=== PATIENT | male | born 1965 | race Caucasian/White ===

== ENCOUNTER 2019-11-07 19:45 | Inpatient (IN) | payer MEDICAID ==
[~2019-11-07] VITALS: Ht 180.3 cm; Wt 113.9 kg
--- NOTE | 2019-11-07 20:27 | NUR ---
Dr. Mendoza at bedside for MSE
[2019-11-07] MEDS ORDERED: IV NORMAL SALINE 1000 ML BAG IV ONE (20:30)
[2019-11-07] MEDS ORDERED: VANCOMYCIN IV 1,000 MG in IV DEXTROSE 5% 250 ML IV ONE (20:30)
[2019-11-07] MEDS ORDERED: VANCOMYCIN IV 200 ML ONE (20:46)
[2019-11-07 21:06] LABS: BASOPHILS # (AUTO) 0.1 K/uL (0.0-8.0); BASOPHILS % (AUTO) 0.4 % (0.0-2.0); EOSINOPHILS # (AUTO) 0.1 K/uL (0.0-0.7); EOSINOPHILS % (AUTO) 0.3 % (0.0-7.0); HEMATOCRIT 50.3 % (36.7-47.1); HEMOGLOBIN 17.1 g/dL (12.5-16.3); LYMPHOCYTES % (AUTO) 9.3 % (20.5-51.5); MEAN CORPUSCULAR HEMOGLOBIN 28.3 uug (23.8-33.4); MEAN CORPUSCULAR HGB CONC 34 g/dL (32.5-36.3); MEAN CORPUSCULAR VOLUME 83.1 fL (73.0-96.2); MONOCYTES # (AUTO) 2.7 K/uL (2.0-10.0); MONOCYTES % (AUTO) 12.6 % (0.0-11.0); NEUTROPHILS # (AUTO) 16.6 K/uL (1.8-8.9); NEUTROPHILS % (AUTO) 77.4 % (38.5-71.5); PLATELET COUNT (AUTO) 208 K/uL (152-348); RED BLOOD CELL COUNT(AUTO) 6.05 MIL/uL (4.06-5.63); WHITE BLOOD COUNT (AUTO) 21.5 K/uL (3.6-10.2)
[2019-11-07 21:14] LABS: POTASSIUM 3.5 mmol/L (3.5-5.1)
[2019-11-07 21:20] LABS: BILIRUBIN,DIRECT 0.1 mg/dL (0.0-0.2); BILIRUBIN,TOTAL 0.5 mg/dL (0.2-1.0); TOTAL PROTEIN, SERUM 6.8 g/dL (6.4-8.2)
--- NOTE | 2019-11-07 21:25 | NUR ---
Ultrasound at bedside.
--- NOTE | 2019-11-07 21:48 | NUR ---
unable to start IV after multiple attempts MD notified with order PICC insertion
--- NOTE | 2019-11-07 21:56 | NUR ---
NADIA REED, DIRECTOR NURSING SERVICE AT BEDSIDE TO EVALUATE PT
--- NOTE | 2019-11-07 22:07 | NUR ---
REPORT GIVEN TO MAGDALENA JEWELL
[2019-11-07] MEDS ORDERED: MORPHINE SULFATE 2 MG/1 ML DISP.SYRIN IV PRN (22:15)
[2019-11-07] MEDS ORDERED: Z GUARD REMEDY PASTE 57 GM TUBE TOP PRN (22:15)
[2019-11-07] MEDS ORDERED: HYDROCODONE/APAP 5-325MG TABLET PO PRN (22:15)
[2019-11-07] MEDS ORDERED: MAGNESIUM HYDROXIDE 30 ML LIQUID UDC PO PRN (22:15)
[2019-11-07] MEDS ORDERED: ONDANSETRON 4 MG/2 ML VIAL IV PRN (22:15)
[2019-11-07] MEDS: NEOMY/BACITRAC/POLYMI OINT 28.35 GM TUBE TOP SCH (22:40)
[2019-11-07] MEDS ORDERED: ONDANSETRON ODT 4 MG TAB.RAPDIS SL PRN (22:45)
[2019-11-07] MEDS ORDERED: PIPERACILLIN SODIUM/TAZOBACTAM 3.375 G in IV DEXTROSE 5% 50 ML IV SCH (22:48)
[2019-11-07] MEDS: HYDROCODONE/APAP 10-325 MG TABLET PO PRN (22:55)
--- NOTE | 2019-11-08 01:00 | NUR ---
PICC line nurse Arnie at bedside for Midline insertion.
--- NOTE | 2019-11-08 01:35 | NUR ---
Pt. admitted to [facility] Room 302 , under care of Darrell Mensah, RESPIRATORY MEDICINE PHYSICIAN Belongs List completed. All belongings with pt aa/ox4. able to speak in complete sentences no s/s of distress respirations even and unlabored transported via gurney
[2019-11-08 01:48] VITALS: BP 120/65
[2019-11-08] MEDS ORDERED: PIPERACILLIN/TAZOBACTAM/D5W 50 ML IV ONE (01:51)
--- NOTE | 2019-11-08 02:00 | NUR ---
Received patient from ER. Dx: Cellulitis. Patient is A/Ox4, no signs of acute distress noted. Complains of pain to the left lower extremity, noted to be red and swollen, wound on calf noted, sent culture to lab. No SOB, vitals WNL. Patient is negative for COVID. Midline on the right upper arm is intact and patent. Patient started on Vanco. Patient oriented to unit and room. Safety measures initiated. Bed is low and locked, call light within reach. Will continue to monitor.
[2019-11-08] MEDS: HYDROCODONE/APAP 10-325 MG TABLET PO PRN (02:03)
--- NOTE | 2019-11-08 02:30 | NUR ---
Spoke to Dariana from [facility], explained that patient was receiving Vanco that was started in ER, patient only has one line as patient is a hard stick, patient was scheduled to received Zosyn around 2230, asked pharmacist if able to change start date of Zosyn because medications are not compatible. Stated she can change start time at 0400. Vancomycin still running at this time, no s/s of infection or infiltration noted.
[2019-11-08 02:52] LABS: *BILIRUBIN,URIN NEGATIVE (NEGATIVE); *BLOOD, URINE 2+ (NEGATIVE); *CLARITY,URINE CLEAR (CLEAR); *COLOR,URINE AMBER (YELLOW); *KETONES,URINE NEGATIVE (NEGATIVE); *UROBILINOGEN,URINE 0.2 E.U./dl (NORMAL); LEUKOCYTE ESTERASE ,URINE NEGATIVE (NEGATIVE); NITRITE, URINE NEGATIVE (NEGATIVE); PH,URINE 5.5 (5.0-8.0); UGLUCOSE NEGATIVE (NEGATIVE)
[2019-11-08 03:02] LABS: BACTERIA,URINE NONE SEEN /HPF (NONE SEEN); WBC,URINE 0-3 /HPF (0-3)
[2019-11-08 03:03] LABS: SQUAMOUS EPITHELIAL CELL,UR FEW /HPF (NONE SEEN)
[2019-11-08] MEDS ORDERED: PIPERACILLIN SODIUM/TAZOBACTAM 3.375 G in IV DEXTROSE 5% 50 ML IV ONE (04:00)
[2019-11-08 05:50] VITALS: BP 127/77
[2019-11-08 06:33] LABS: BASOPHILS % (AUTO) 0.3 % (0.0-2.0); EOSINOPHILS % (AUTO) 0.1 % (0.0-7.0); HEMATOCRIT 45.4 % (36.7-47.1); HEMOGLOBIN 15.2 g/dL (12.5-16.3); LYMPHOCYTES # (AUTO) 1.6 K/uL (20.0-40.0); MEAN CORPUSCULAR HEMOGLOBIN 27.9 uug (23.8-33.4); MEAN CORPUSCULAR HGB CONC 34 g/dL (32.5-36.3); MEAN CORPUSCULAR VOLUME 83.1 fL (73.0-96.2); MONOCYTES # (AUTO) 1.9 K/uL (2.0-10.0); MONOCYTES % (AUTO) 11.9 % (0.0-11.0); NEUTROPHILS # (AUTO) 12.4 K/uL (1.8-8.9); NEUTROPHILS % (AUTO) 77.7 % (38.5-71.5); PLATELET COUNT (AUTO) 202 K/uL (152-348); RED BLOOD CELL COUNT(AUTO) 5.46 MIL/uL (4.06-5.63)
[2019-11-08 06:40] LABS: CREATININE 1.2 mg/dL (0.6-1.3); MAGNESIUM 1.8 mg/dL (1.8-2.4); PHOSPHOROUS 3.5 mg/dL (2.5-4.9)
[2019-11-08 06:46] LABS: THYROID STIMULATING HORMONE 1.209 mIU/mL (0.358-3.740)
[2019-11-08] MEDS: ENOXAPARIN SODIUM 40 MG/0.4 ML DISP.SYRIN SQ SCH (08:07)
[2019-11-08] MEDS ORDERED: VANCOMYCIN IV 1,250 MG in IV DEXTROSE 5% 250 ML IV SCH (09:00)
[2019-11-08] MEDS: PIPERACILLIN SODIUM/TAZOBACTAM 3.375 G in IV DEXTROSE 5% 50 ML IV SCH ×3 (09:15→21:36)
[2019-11-08] MEDS ORDERED: POTASSIUM CHLORIDE 20 MEQ TAB.PRT.SR PO ONE (09:30)
[2019-11-08] MEDS: VANCOMYCIN IV 1,250 MG in IV DEXTROSE 5% 250 ML IV SCH (11:29)
[2019-11-08 11:37] VITALS: BP 112/66
[2019-11-08] MEDS ORDERED: PIPERACILLIN SODIUM/TAZOBACTAM 3.375 G in IV DEXTROSE 5% 50 ML IV SCH (12:00)
[2019-11-08 15:35] VITALS: BP 111/70
--- NOTE | 2019-11-08 19:30 | NUR ---
Patient alert oriented, no sob no chest pain. Patient has no complain of pain at this time. Patient left lower leg cellulitis still red, no drainage noted. Tx continue, call light within reach.
[2019-11-08 20:13] VITALS: BP 118/71
[2019-11-08] MEDS: NEOMY/BACITRAC/POLYMI OINT 28.35 GM TUBE TOP SCH (22:09)
[2019-11-09] MEDS: VANCOMYCIN IV 1,250 MG in IV DEXTROSE 5% 250 ML IV SCH (00:40)
[2019-11-09] MEDS: PIPERACILLIN SODIUM/TAZOBACTAM 3.375 G in IV DEXTROSE 5% 50 ML IV SCH ×4 (03:54→21:49)
--- NOTE | 2019-11-09 04:01 | NUR ---
Patient asleep but easily arousable. Patient has no complain of pain nor discomfort. Patient left leg kept elevated with pillow, call light within reach, cont to monitor.
[2019-11-09 05:12] VITALS: BP 116/66
[2019-11-09 06:31] LABS: BASOPHILS # (AUTO) 0.1 K/uL (0.0-8.0); BASOPHILS % (AUTO) 0.5 % (0.0-2.0); EOSINOPHILS # (AUTO) 0.1 K/uL (0.0-0.7); EOSINOPHILS % (AUTO) 0.4 % (0.0-7.0); HEMATOCRIT 43.7 % (36.7-47.1); HEMOGLOBIN 14.5 g/dL (12.5-16.3); LYMPHOCYTES # (AUTO) 1.3 K/uL (20.0-40.0); LYMPHOCYTES % (AUTO) 8.3 % (20.5-51.5); MEAN CORPUSCULAR HEMOGLOBIN 27.9 uug (23.8-33.4); MEAN CORPUSCULAR HGB CONC 33 g/dL (32.5-36.3); MEAN CORPUSCULAR VOLUME 83.9 fL (73.0-96.2); MONOCYTES # (AUTO) 1.4 K/uL (2.0-10.0); MONOCYTES % (AUTO) 9.2 % (0.0-11.0); NEUTROPHILS # (AUTO) 12.6 K/uL (1.8-8.9); NEUTROPHILS % (AUTO) 81.6 % (38.5-71.5); PLATELET COUNT (AUTO) 223 K/uL (152-348); RED BLOOD CELL COUNT(AUTO) 5.21 MIL/uL (4.06-5.63); WHITE BLOOD COUNT (AUTO) 15.4 K/uL (3.6-10.2)
[2019-11-09 06:49] LABS: POTASSIUM 3.7 mmol/L (3.5-5.1)
--- NOTE | 2019-11-09 07:30 | NUR ---
Received pt in bed asleep but arousable to name, AOx4, on RA with no SOB or distress noted at this time. GRACE midline flushed and patent. Left leg redness and swelling noted, and pt stated "it's feeling a lot better." Leg elevated. Wound on left calf noted, no drainage noted at this time and covered with Mepilex. No other complaints. Bed locked in lowest position with siderails 2x up. Call light within reach. Will monitor
[2019-11-09 08:00] VITALS: BP 119/75
[2019-11-09] MEDS: ENOXAPARIN SODIUM 40 MG/0.4 ML DISP.SYRIN SQ SCH (08:41)
[2019-11-09] MEDS: ACETAMINOPHEN 325 MG TABLET PO PRN (09:47)
--- NOTE | 2019-11-09 09:53 | NUR ---
Pt's temp of 100, Tylenol 650 PRN given, applied ice packs under armpits. Will monitor
[2019-11-09 11:12] VITALS: BP 134/72
[2019-11-09] MEDS: VANCOMYCIN IV 1,000 MG in IV DEXTROSE 5% 250 ML IV SCH ×2 (12:07→20:28)
[2019-11-09 15:32] VITALS: BP 111/67
--- NOTE | 2019-11-09 15:35 | NUR ---
Temp decreased to 98. Pt stated not feeling warm anymore. No flushness and sweating noted.
--- NOTE | 2019-11-09 19:24 | NUR ---
Pt stable and asleep in bed but arousable to name. On RA with no SOB or distress noted at this time. Stated feeling better, left leg redness noted but subsided, denied pain on the left leg. Been ambulating to bathroom with no issues. Bed locked in lowest position with siderails 2x up. Call light within reach.
--- NOTE | 2019-11-09 19:30 | NUR ---
Patient alert oriented, no sob no chest pain. Patient has no complain of pain at this time. Patient ambulate to toilet for bladder elimination. Patient cont abx for cellulitis of the left leg, cont to monitor.
[2019-11-09 20:01] VITALS: BP 117/69
[2019-11-09] MEDS: NEOMY/BACITRAC/POLYMI OINT 28.35 GM TUBE TOP SCH (22:43)
[2019-11-10] MEDS: PIPERACILLIN SODIUM/TAZOBACTAM 3.375 G in IV DEXTROSE 5% 50 ML IV SCH ×3 (04:18→16:24)
[2019-11-10] MEDS: VANCOMYCIN IV 1,000 MG in IV DEXTROSE 5% 250 ML IV SCH ×3 (04:28→19:38)
[2019-11-10 05:18] VITALS: BP 110/54
--- NOTE | 2019-11-10 05:54 | NUR ---
PATIENT ALERT ORIENTED, NO SOB NO CHEST PAIN, AFEBRILE. PATIENT HAS NO COMPLAIN OF PAIN AT THIS TIME. PATIENT LEFT LEG CELLULITIS REDNESS SUBSIDING, CONT TO MONITOR.
[2019-11-10 06:08] LABS: BASOPHILS % (AUTO) 0.4 % (0.0-2.0); EOSINOPHILS # (AUTO) 0.2 K/uL (0.0-0.7); EOSINOPHILS % (AUTO) 1.6 % (0.0-7.0); HEMOGLOBIN 14.1 g/dL (12.5-16.3); LYMPHOCYTES # (AUTO) 1.4 K/uL (20.0-40.0); LYMPHOCYTES % (AUTO) 11.2 % (20.5-51.5); MEAN CORPUSCULAR HEMOGLOBIN 28.2 uug (23.8-33.4); MEAN CORPUSCULAR HGB CONC 34 g/dL (32.5-36.3); MEAN CORPUSCULAR VOLUME 83.6 fL (73.0-96.2); MONOCYTES # (AUTO) 1.1 K/uL (2.0-10.0); MONOCYTES % (AUTO) 8.7 % (0.0-11.0); NEUTROPHILS # (AUTO) 10.1 K/uL (1.8-8.9); NEUTROPHILS % (AUTO) 78.1 % (38.5-71.5); PLATELET COUNT (AUTO) 275 K/uL (152-348); RED BLOOD CELL COUNT(AUTO) 5.02 MIL/uL (4.06-5.63); WHITE BLOOD COUNT (AUTO) 12.9 K/uL (3.6-10.2)
[2019-11-10 06:26] LABS: POTASSIUM 3.3 mmol/L (3.5-5.1)
[2019-11-10 06:27] LABS: CREATININE 1.1 mg/dL (0.6-1.3)
[2019-11-10] MEDS: ENOXAPARIN SODIUM 40 MG/0.4 ML DISP.SYRIN SQ SCH (08:07)
--- NOTE | 2019-11-10 08:15 | NUR ---
RECEIVED PATIENT IN BED AWAKE ALERT AND ORIENTED DENIES PAIN OR DISCOMFORTS AT THIS TIME REMAIN ON ATB ORDERED WITH NO ADVERSE OR ALLERGIC REACTIONS AT THIS TIME ENCOURAGE TO ELEVATE LEFT LEG TO REDUCE SWELLING AND HE EXPRESSED UNDERSTANDG CALL LIGHTS AND PERSONAL BELONGINGS ARE WITH EASY REACH AT THIS TIME WILL CONTINUE TO OBSERVE.
[2019-11-10] MEDS ORDERED: POTASSIUM CHLORIDE 20 MEQ TAB.PRT.SR PO ONE (09:30)
[2019-11-10 11:12] VITALS: BP 105/63
--- NOTE | 2019-11-10 14:19 | NUR ---
WOUND CARE CONSULT: PT PRESENTS WITH LEFT LOWER LEG WOUND WITH REDNESS TO ANKLE AREA, PRESENT ON ADMISSION. RECOMMEND DPM CONSULT. DR ARAUJO NOTIFIED OF CONSULT REQUEST. IN AGREEMENT WITH PLAN OF CARE. Addendum: 11/10/19 at 1420 by JOCELYN GUILLEN RN Amended: Links added.
[2019-11-10 15:24] VITALS: BP 122/70
--- NOTE | 2019-11-10 17:00 | NUR ---
CALL RECEIVED FROM [email or web address] PATIENT IS POSITIVE FOR MRSA NARES NADIA [employer] SUPERVISOR NOTIFIED WITH NEW ORDERS AND NOTED.
--- NOTE | 2019-11-10 19:30 | NUR ---
RECEIVED PT AWAKE, ALERT AND ORIENTEDX4. PT IN NO ACUTE DISTRESS. IV INTACT. SAFETY AND COMFORT PROVIDED.WILL CONTINUE TO MONITOR.
[2019-11-10] MEDS ORDERED: CEFTRIAXONE 2 G in IV DEXTROSE 5% 100 ML IV SCH (20:00)
[2019-11-10 20:42] VITALS: BP 108/60
[2019-11-10] MEDS: CEFTRIAXONE 2 G in IV DEXTROSE 5% 100 ML IV SCH (20:45)
[2019-11-10] MEDS: MUPIROCIN 2% OINT 22 GM TUBE NS SCH (20:54)
[2019-11-10] MEDS ORDERED: MUPIROCIN 2% OINT 22 GM TUBE NS SCH (21:00)
[2019-11-10] MEDS: NEOMY/BACITRAC/POLYMI OINT 28.35 GM TUBE TOP SCH (21:44)
--- NOTE | 2019-11-10 21:46 | NUR ---
HANDS OFF REPORT TO ARI RN. PT IN NO ACUTE DISTRESS. IV INTACT. SAFETY AND COMFORT PROVIDED.
[2019-11-11] MEDS: VANCOMYCIN IV 1,000 MG in IV DEXTROSE 5% 250 ML IV SCH ×3 (03:55→20:19)
[2019-11-11 04:36] VITALS: BP 123/75
[2019-11-11 06:09] LABS: BASOPHILS # (AUTO) 0.1 K/uL (0.0-8.0); BASOPHILS % (AUTO) 0.9 % (0.0-2.0); EOSINOPHILS # (AUTO) 0.3 K/uL (0.0-0.7); EOSINOPHILS % (AUTO) 2.9 % (0.0-7.0); HEMATOCRIT 44.2 % (36.7-47.1); HEMOGLOBIN 14.8 g/dL (12.5-16.3); LYMPHOCYTES # (AUTO) 1.5 K/uL (20.0-40.0); LYMPHOCYTES % (AUTO) 14.4 % (20.5-51.5); MEAN CORPUSCULAR HEMOGLOBIN 28.2 uug (23.8-33.4); MEAN CORPUSCULAR HGB CONC 33 g/dL (32.5-36.3); MEAN CORPUSCULAR VOLUME 84.5 fL (73.0-96.2); MONOCYTES # (AUTO) 0.9 K/uL (2.0-10.0); MONOCYTES % (AUTO) 8.2 % (0.0-11.0); NEUTROPHILS # (AUTO) 7.8 K/uL (1.8-8.9); NEUTROPHILS % (AUTO) 73.6 % (38.5-71.5); PLATELET COUNT (AUTO) 349 K/uL (152-348); RED BLOOD CELL COUNT(AUTO) 5.23 MIL/uL (4.06-5.63); WHITE BLOOD COUNT (AUTO) 10.6 K/uL (3.6-10.2)
--- NOTE | 2019-11-11 08:00 | NUR ---
RECEIVED PATIENT IN BED AWAKE ALERT AND ORIENTED COMPLIANT WITH MEDICATIONS AND COMPLIANT WITH CARE ON ROOM AIR WITH NO SHORTNESS OF BREATH AT THIS TIME REMAIN ON ATB WITH NO S/S OF INFILTERATION ON SITE LEFT LOWER EXT CELLULITIS STILL EVIDENT ENCOURAGED TO ELEVATE MUCH ABLE AND HE EXPRESSED UNDERSTANDING CALL LIGHTS AND PERSONAL BELONGINGS ARE WITHIN EASY REACH AT THIS TIME MADE COMFORTABLE WILL CONTINUE TO OBSERVE.
[2019-11-11] MEDS: ENOXAPARIN SODIUM 40 MG/0.4 ML DISP.SYRIN SQ SCH (08:41)
[2019-11-11] MEDS: MUPIROCIN 2% OINT 22 GM TUBE NS SCH ×2 (08:42→20:29)
[2019-11-11 12:24] VITALS: BP 119/79
--- NOTE | 2019-11-11 12:44 | NUR ---
PATIENT SEEN AND EXAMINED BY DR FLOWERS OPEN END SPINNING OPERATOR WITH NEW ORDERS AND NOTED
--- NOTE | 2019-11-11 15:50 | NUR ---
RESTING IN BED REMAIN ON ATB ORDERED WITH NO ADVERSE OR ALLERGIC REACTIONS AT THIS TIME ENCOURAGED TO ELEVATE HIS LEFT LEG TO REDUCE SWELLING AND HE EXPRESSED UNDERSTANDING.
[2019-11-11 16:09] VITALS: BP 129/52
--- NOTE | 2019-11-11 18:00 | NUR ---
NO C/O APPETITE WAS GOOD FOR HIS DINNER NO ADVERSE OR ALLERGIC REACTIONS AT THIS TIME WILL CONTINUE ON ANTIBIOTICS ORDERED WILL CONTINUE TO OBSERVE
[2019-11-11 20:01] VITALS: BP 114/66
[2019-11-11] MEDS: CEFTRIAXONE 2 G in IV DEXTROSE 5% 100 ML IV SCH (22:35)
[2019-11-11] MEDS: NEOMY/BACITRAC/POLYMI OINT 28.35 GM TUBE TOP SCH (22:36)
[2019-11-12] MEDS: VANCOMYCIN IV 1,000 MG in IV DEXTROSE 5% 250 ML IV SCH ×3 (03:31→19:25)
[2019-11-12 04:00] VITALS: BP 103/52
[2019-11-12] MEDS ORDERED: IV NORMAL SALINE 250 ML IV PRN (06:15)
[2019-11-12 06:29] LABS: CREATININE 1.1 mg/dL (0.6-1.3); POTASSIUM 4.2 mmol/L (3.5-5.1)
[2019-11-12] MEDS: MUPIROCIN 2% OINT 22 GM TUBE NS SCH ×2 (08:08→20:08)
[2019-11-12] MEDS: ENOXAPARIN SODIUM 40 MG/0.4 ML DISP.SYRIN SQ SCH (08:08)
[2019-11-12 11:50] VITALS: BP 100/45
[2019-11-12] MEDS: ACETAMINOPHEN 325 MG TABLET PO PRN (11:59)
[2019-11-12 16:00] VITALS: BP 117/76
--- NOTE | 2019-11-12 19:30 | NUR ---
RECEIVED PT AWAKE, ALERT AND ORIENTEDX4. PT IN NO ACUTE DISTRESS. IV INTACT. SAFETY AND COMFORT PROVIDED. WILL CONTINUE TO MONITOR.
[2019-11-12 20:05] VITALS: BP 106/46
[2019-11-12] MEDS: CEFTRIAXONE 2 G in IV DEXTROSE 5% 100 ML IV SCH (21:04)
[2019-11-12] MEDS: NEOMY/BACITRAC/POLYMI OINT 28.35 GM TUBE TOP SCH (23:33)
[2019-11-13] MEDS: VANCOMYCIN IV 1,000 MG in IV DEXTROSE 5% 250 ML IV SCH (03:14)
[2019-11-13 04:05] VITALS: BP 99/45
--- NOTE | 2019-11-13 06:28 | NUR ---
PT REFUSED HIS BLOOD TO BE DRAWN BY HEAD CONTROL CLERK.
--- NOTE | 2019-11-13 06:39 | NUR ---
PT SLEPT COMFORTABLY. PT IN NO ACUTE DISTRESS. IV INTACT. WOUND DRESSING CHANGED. PRESCRIBED MEDICATION GIVEN AND PT TOLERATED IT WELL. SAFETY AND COMFORT PROVIDED. WILL ENDORSE TO INCOMING NURSE FOR CONTINUITY OF CARE.
[2019-11-13] MEDS: MUPIROCIN 2% OINT 22 GM TUBE NS SCH (08:00)
[2019-11-13] MEDS: ENOXAPARIN SODIUM 40 MG/0.4 ML DISP.SYRIN SQ SCH (08:01)
--- NOTE | 2019-11-13 10:26 | NUR ---
DC ORDERS RECEIVED NOTED AND CARRIED OUT,DC MIDLINE PER MD ORDERS,DC INSTRUCTION AND EDUCATION GIVEN TO THE PT,PT SAID HE WILL FOLLOW UP WITH HIS PCP IN ONE WEEK ,PT LEFT THE FACILITY VIA PRIVATE CAR IN STABLE CONDITION
== END 2019-11-13 10:30 | disposition home or self-care (01) | DRG 720 ==
LOC: ER 19:48 → MEDSURG3 22:25
PROVIDERS: ADMIT Nurse Practitioner Acute Care; ATTEND Nurse Practitioner Acute Care
PROC: B546ZZA Ultrasonography of Right Subclavian Vein, Guidance (ICD-10-PCS; principal; 2019-11-08)
PROC: 05H533Z Insertion of Infusion Device into Right Subclavian Vein, Percutaneous Approach (ICD-10-PCS; principal; 2019-11-08)
DX: A41.9 Sepsis, unspecified organism (principal); L03.116 Cellulitis of left lower limb; E87.1 Hypo-osmolality and hyponatremia; E66.9 Obesity, unspecified; E87.6 Hypokalemia; E44.0 Moderate protein-calorie malnutrition; F17.210 Nicotine dependence, cigarettes, uncomplicated; M20.41 Other hammer toe(s) (acquired), right foot; M20.42 Other hammer toe(s) (acquired), left foot; L97.829 Non-pressure chronic ulcer of other part of left lower leg with unspecified severity; Z68.35 Body mass index [BMI] 35.0-35.9, adult; Z22.322 Carrier or suspected carrier of Methicillin resistant Staphylococcus aureus; F15.10 Other stimulant abuse, uncomplicated; I87.2 Venous insufficiency (chronic) (peripheral)
CPT/HCPCS: 36415; 70030-TC; 71045; 83605; 83690; 83735; 84100; 84443; 85025; 85730; 87040; 87070; 87077; 87086; 93005; 93307; G0378; J0696; J1650; J2543; J3370; J7030; J7050; J7060; U0003-CS

== ENCOUNTER 2022-03-28 23:49 | Emergency (ER) | payer MEDICAID, OTHER ==
[~2022-03-28] VITALS: Ht 177.8 cm; Wt 108.9 kg
[2022-03-29] MEDS ORDERED: HYDROMORPHONE 2 MG/1 ML DISP.SYRIN ONE (00:36)
[2022-03-29] MEDS ORDERED: ONDANSETRON ODT 4 MG TAB.RAPDIS ONE (00:36)
[2022-03-29] MEDS ORDERED: HYDROMORPHONE 1 MG/1 ML DISP.SYRIN IM ONE (00:45)
[2022-03-29] MEDS ORDERED: ONDANSETRON ODT 4 MG TAB.RAPDIS SL ONE (00:45)
--- NOTE | 2022-03-29 00:55 | NUR ---
Xray at bedside.
[2022-03-29] MEDS ORDERED: HYDR-4209 PO (01:53)
--- NOTE | 2022-03-29 02:07 | NUR ---
Patient discharged to home in stable condition. Written and verbal after care instructions given. Patient verbalizes understanding of instructions. Stressed follow up or return to ER for worsening s/s. Patient is a/ox4, NAD noted. Patient is able to walk with steady gait
[2022-03-29 02:08] VITALS: BP 127/78
== END 2022-03-29 02:18 | disposition home or self-care (01) ==
LOC: ER 03-29 00:02
DX: S20.212A Contusion of left front wall of thorax, initial encounter (principal); Y04.0XXA Assault by unarmed brawl or fight, initial encounter; Y92.89 Other specified places as the place of occurrence of the external cause; F17.210 Nicotine dependence, cigarettes, uncomplicated; R03.0 Elevated blood-pressure reading, without diagnosis of hypertension
CPT/HCPCS: 99284; 71045; 93005; 96372; J1170; A4663; Q0162